=== PATIENT | female | born 1945 | race Caucasian/White ===

== ENCOUNTER 2019-04-02 07:11 | Day surgery (SDC) ==
[2019-03-25 11:41] LABS: URINE SOURCE VOIDED
[2019-03-25 11:53] LABS: BASO# 0.08 X1000 (0.0-0.2); BASO% 1.3 % (0.0-0.8); EOS# 0.13 X1000 (0.0-0.7); EOS% 2.2 % (0.0-10.0); HEMATOCRIT 41.2 % (37.0-47.0); HEMOGLOBIN 14.2 g/dL (12.0-16.0); LYMPH# 1.67 X1000 (1.2-3.4); LYMPH% 27.8 % (20.5-51.1); MCH 30.6 PG (27-31); MCHC 34.5 g/dL (33-37); MCV 88.8 FL (81-99); MONO# 0.93 X1000 (0.11-0.59); MONO% 15.5 % (1.7-9.3); NEUT# 3.19 X1000 (1.4-6.5); NEUT% 53.2 % (42.2-75.2); PLT 252 X1000 (130-400); RBC 4.64 XMIL (4.2-5.4); RDW 11.9 % (11.5-14.5)
[2019-03-25 11:58] LABS: INR 0.9; PROTIME 12.9 Seconds (11.0-16.0)
[2019-03-25 11:59] LABS: PTT 29.2 Seconds (22.3-41.8)
[2019-03-25 12:00] LABS: BILIRUBIN URINE NEGATIVE (NEGATIVE); BLOOD URINE NEGATIVE (NEGATIVE); COLOR STRAW; GLUCOSE URINE NEGATIVE (NEGATIVE); KETONE URINE NEGATIVE (NEGATIVE); LEUKOCYTES URINE NEGATIVE (NEGATIVE); NITRITE URINE NEGATIVE (NEGATIVE); PROTEIN URINE NEGATIVE (NEGATIVE); TURBIDITY URINE CLEAR (CLEAR); UROBILINOGEN URINE NORMAL (NORMAL)
[2019-03-25 12:01] LABS: UR EPITHELIAL CELLS <10 /HPF (<10); URINE BACTERIA NEGATIVE /HPF; URINE RBC <10 /HPF (<10); URINE WBC <10 /HPF (<10)
--- NOTE | 2019-03-25 12:11 | EKG Report ---
Test Performed on : 03/25/2019 10:25:56 AM Test Reason : PAT Blood Pressure : / mmHG Vent. Rate : 078 BPM Atrial Rate : 078 BPM P-R Int : 200 ms QRS Dur : 122 ms QT Int : 364 ms P-R-T Axes : -65 -23 154 degrees QTc Int : 414 ms Unusual P axis, possible ectopic atrial rhythm. with premature atrial complexes. Left bundle branch block Abnormal ECG When compared with ECG of 29-MAR-2016 12:52, Ectopic atrial rhythm. has replaced Sinus rhythm. ST elevation now present in Anterior leads T wave inversion more evident in Lateral leads QT has shortened Confirmed by Albino ROGERS, Desmond Ballesteros ([id number]) on 03/25/2019 3:01:47 PM
[2019-03-25 12:29] LABS: CALCIUM 9.7 mg/dL (8.8-10.2); CREATININE 1.1 mg/dL (0.5-0.9); POTASSIUM 3.3 mmol/L (3.5-5.1)
[2019-04-02] MEDS ORDERED: COLACE ONE (08:02)
[2019-04-02] MEDS ORDERED: LYRICA ONE (08:02)
[2019-04-02] MEDS ORDERED: PEPCID ONE (08:02)
[2019-04-02] MEDS ORDERED: KEFZOL 1 GM/D5W 2 GM/100 ML IVPB ONE (08:02)
[2019-04-02] MEDS ORDERED: LR 1,000 ML ONE (08:02)
[2019-04-02] MEDS ORDERED: CELEBREX ONE (08:02)
[2019-04-02] MEDS ORDERED: REGLAN ONE (08:02)
[2019-04-02] MEDS ORDERED: DURAMORPH ONE (09:47)
[2019-04-02] MEDS ORDERED: MARCAINE 0.25% PF ONE (09:47)
[2019-04-02] MEDS ORDERED: VANCOMYCIN ONE (09:47)
[2019-04-02] MEDS ORDERED: TORADOL ONE (09:47)
[2019-04-02] MEDS ORDERED: NEOSPORIN G.U. IRRIGANT ONE (09:48)
[2019-04-02] MEDS ORDERED: EXPAREL 1.3% ONE (09:48)
[2019-04-02] MEDS ORDERED: CYKLOKAPRON 1,000 MG/NS 1,000 MG/100 ML IVPB ONE ×2 (09:48→09:49)
[2019-04-02] MEDS ORDERED: SODIUM CHLORIDE 0.9% ONE (09:48)
[2019-04-02] MEDS ORDERED: FENTANYL ONE (10:20)
[2019-04-02] MEDS ORDERED: DIPRIVAN 1% ONE ×2 (10:20→10:22)
[2019-04-02] MEDS ORDERED: DECADRON ONE (10:57)
[2019-04-02] MEDS ORDERED: OFIRMEV 1000 MG/ISOTONIC SOLN 1,000 MG/100 ML BOTTLE ONE (10:57)
[2019-04-02] MEDS ORDERED: ZOFRAN ONE (10:57)
[2019-04-02 11:31] LABS: URINE SOURCE CATH
[2019-04-02 11:46] LABS: BILIRUBIN URINE NEGATIVE (NEGATIVE); BLOOD URINE NEGATIVE (NEGATIVE); COLOR STRAW; GLUCOSE URINE TRACE mg/dL (NEGATIVE); KETONE URINE NEGATIVE (NEGATIVE); LEUKOCYTES URINE NEGATIVE (NEGATIVE); NITRITE URINE NEGATIVE (NEGATIVE); PH URINE 7.5; PROTEIN URINE NEGATIVE (NEGATIVE); TURBIDITY URINE CLEAR (CLEAR); UROBILINOGEN URINE NORMAL (NORMAL)
[2019-04-02 12:03] LABS: UR EPITHELIAL CELLS <10 /HPF (<10); URINE BACTERIA NEGATIVE /HPF; URINE RBC <10 /HPF (<10); URINE WBC <10 /HPF (<10)
[2019-04-02] MEDS ORDERED: OXY IR ONE (13:17)
[2019-04-02] MEDS ORDERED: NS 1,000 ML ONE (13:17)
--- NOTE | 2019-04-02 13:25 | Diag Imaging Result Doc PS360 ---
EXAM: KNEE 1-2 VIEWS-LEFT HISTORY: post op total knee TECHNIQUE: Left knee, two views COMPARISON: None. FINDINGS: There has been orthopedic replacement of the knee. There are anterior skin vishal and a superior surgical drain. Good alignment to the femoral and tibial components. There is a fracture through the lateral femoral condyle. IMPRESSION: Lateral femoral condyle fracture. Electronically signed by Jas Rodriguez 04/02/2019 1:23 PM
--- NOTE | 2019-04-02 13:42 | OPERATIVE NOTE ---
PROCEDURE DATE: 04/02/2019 PREOPERATIVE DIAGNOSIS: Osteoarthritis, left knee. POSTOPERATIVE DIAGNOSIS: Osteoarthritis, left knee. PROCEDURE: Left total knee arthroplasty with DePuy Attune size 5 posterior stabilized femur, size 6 tibial tray, a 6 mm rotating platform tibial insert, and a 35 mm medialized anatomic patella. SURGEON: Eros Jeronimo MD. SCOUT: CHUCHO Fenton. SECOND MEASUREMENT COORDINATOR: Ludwig Eid RN. ANESTHESIA: General. IV FLUIDS: 1800 mL lactated Ringer's. ESTIMATED BLOOD LOSS: 50 mL. TOURNIQUET TIME: 85 minutes at 350 mmHg. COMPLICATIONS: None. INDICATION: The patient is a 73-year-old female with chronic history of pain and discomfort of the left knee. She has had continued pain and discomfort despite appropriate nonoperative treatment. X-rays revealed degenerative osteoarthritis. Recommendation to proceed with left total knee arthroplasty was offered. Risks and benefits of surgery were explained, including the risks of anesthesia, , bleeding, infection, failure to relieve pain, postoperative stiffness, nerve injury, blood clots, and other imponderables. All questions were answered and the patient and family wished to proceed with surgery. DETAILS OF OPERATION: The patient was taken to the operating room and placed supine on the operating table. Once adequate anesthesia was obtained, the patient's left lower extremity was subsequently prepped and draped in the usual sterile fashion. Esmarch was used to exsanguinate the left lower extremity. It was inflated to 350 mmHg. A standard anterior incision was made with a skin knife. Medial and lateral skin envelopes were developed. Standard medial parapatellar arthrotomy was then performed. Patella fat pad was excised. Retractors were then placed. Approximately 1 cm anterior to the PCL insertion, a starting reamer was passed. An intramedullary guide with a distal femoral cutting block was pinned in position. A distal femoral cut was then performed in a standard fashion. A sizing block was placed and measured to size 5. Corresponding pins were placed. A size 5 cutting block was placed in position. Anterior, posterior, and chamfer cuts were then made. Attention was then turned to the proximal tibia where further resection of the ACL and PCL was performed. Using the extramedullary guide, the proximal tibia cutting block was pinned in position. The proximal tibia was then resected. The proximal tibia was resected in a standard fashion. Medial and lateral menisci were excised. A curved osteotome was used to remove the posterior osteophytes off the distal femur. A spacer block was placed and had good soft tissue balance in both flexion and extension. The proximal tibia cutting block tray was then pinned in position. This was followed by a central reamer and a fin punch. A box cutting guide was then placed on the distal femur. A box cut was then performed. A trial femoral component was then placed and had good positioning. Two lug holes were drilled. A tibial insert was placed and had good soft tissue balancing. The patella was everted and resected in standard fashion. A 35 mm patella appeared to be correct size. Corresponding holes were drilled. The trial component was then placed. The patella had good patellofemoral tracking. Trial components were then removed. Copious irrigation was then performed with antibiotic pulsatile lavage while vancomycin was mixed with cement on the back table. Sequential cementing was then performed first with the tibial tray and excess cement was removed with a [place] followed by the femoral component and excess cement was removed with a [place] followed by a trial tibial insert in full extension. It was noted that the lateral femoral condyle had a fracture line extending from the corner of the box obliquely. It appeared be overall stable. Copious irrigation was then performed with antibiotic pulsatile lavage while vancomycin was mixed with cement on the back table. Sequential cementing was then performed, first with the tibial tray and excess cement removed with a [place]. This was followed by a pointed reduction clamp that was used on the femoral condyles to maintain the reduction of the lateral femoral condyle. Cement was then placed and the patella component was cemented in a standard fashion. A trial tibial insert was then placed in full extension, axial loading was maintained while cement cured. The patella component was then cemented in a standard fashion. Patella clamp was placed. While cement was curing, Exparel was placed deep in the soft tissue, as well as the subcutaneous tissue. After cement had cured the reduction clamp was removed. The knee was then carried through range of motion and the lateral femoral condyle appeared to be stable. There was no evidence of movement with flexion/extension or varus or valgus stressing. A 6 mm rotating platform tibial insert appeared to be correct size. The trial tibial insert was removed. Exparel was placed deep in the posterior capsule. The wound was copiously irrigated with antibiotic pulsatile lavage. A 6 mm rotating platform tibial insert was placed and carried through range of motion, with good range of motion, good soft tissue balancing, and good patellofemoral tracking. The lateral femoral condyle was stable. A 1/8 Hemovac drain was placed and was not sewn in. Copious irrigation was then performed once again with antibiotic pulsatile lavage. Suture of 1-0 Vicryl was used to repair the arthrotomy, followed by 2-0 Vicryl to repair the subcutaneous tissue, and skin vishal. Adaptic, sterile 4 x 4, ABD pad, and Webril cryo unit, and Chema wrap were applied to the left lower extremity. The patient tolerated the procedure well and was transferred to the recovery room in stable condition. cc: Eros Jeronimo MD
[2019-04-02] MEDS ORDERED: OXY IR PO PRN ×2 (14:45)
[2019-04-02] MEDS ORDERED: MORPHINE IV PRN ×3 (14:45)
[2019-04-02] MEDS ORDERED: ZOFRAN PO PRN (14:45)
[2019-04-02] MEDS: NS 1,000 ML IV SCH (16:31)
[2019-04-02] MEDS: KEFZOL 2 GM/D5W 2 GM/50 ML IVPB IV SCH (18:19)
[2019-04-02] MEDS ORDERED: CARDIZEM CD PO SCH (21:00)
[2019-04-02] MEDS: EFFEXOR PO SCH (21:15)
[2019-04-02] MEDS: PRILOSEC PO SCH (21:15)
[2019-04-02] MEDS: PERIDEX MT SCH (21:15)
[2019-04-02] MEDS: NEURONTIN PO SCH (21:15)
[2019-04-03] MEDS: KEFZOL 2 GM/D5W 2 GM/50 ML IVPB IV SCH (01:43)
[2019-04-03] MEDS ORDERED: XARELTO PO SCH (06:00)
[2019-04-03 06:36] LABS: HEMATOCRIT 31.5 % (37.0-47.0); HEMOGLOBIN 10.7 g/dL (12.0-16.0)
[2019-04-03 06:44] LABS: CALCIUM 8.7 mg/dL (8.8-10.2); CREATININE 1.1 mg/dL (0.5-0.9); POTASSIUM 3.9 mmol/L (3.5-5.1)
[2019-04-03] MEDS: NS 1,000 ML IV SCH (08:24)
[2019-04-03] MEDS ORDERED: KLOR-CON PO SCH (09:00)
[2019-04-03] MEDS ORDERED: HYZAAR 50/12.5 MG PO SCH (09:00)
[2019-04-03] MEDS ORDERED: XANAX PO SCH (09:00)
[2019-04-03] MEDS ORDERED: LASIX PO SCH (09:00)
[2019-04-03] MEDS: EFFEXOR PO SCH (09:28)
[2019-04-03] MEDS: PRILOSEC PO SCH (09:28)
[2019-04-03] MEDS: NEURONTIN PO SCH (09:28)
[2019-04-03] MEDS: PERIDEX MT SCH (09:28)
--- NOTE | 2019-04-03 10:50 | ORTHOPAEDICS PROGRESS NOTE ---
DATE: 04/03/2019 SUBJECTIVE: Patient is a 73-year-old female who is one day status post left total knee arthroplasty. Patient did sustain a lateral condyle fracture intraoperatively which was stable. She is currently resting comfortably. OBJECTIVE: On physical exam, patient's left lower extremity, her dressing is intact. Calf is soft. She has active dorsiflexion plantar flexion. LABORATORY DATE: Her labs are pending. IMPRESSION: Postoperative day #1 status post left total knee arthroplasty, with lateral condyle fracture. PLAN: At this point, will begin physical therapy with partial weightbearing left lower extremity. We will consider discharging later today if she is mobilizing with physical therapy. All questions were answered. We will arrange for outpatient physical therapy. cc: Eros Jeronimo MD
[2019-04-03 11:23] VITALS: BP 126/79
== END 2019-04-03 14:14 | disposition home or self-care (01) ==
LOC: PAT 07:11 → OPS 07:11 → SURHOLD 07:11 → 4N 14:16 → OPS 04-03 14:14
PROVIDERS: ATTEND Orthopaedic Surgery Adult Reconstructive Orthopaedic Surgery
CPT/HCPCS: 73560; 80048; 81001; 85014; 85018; 85025; 85610; 85730; 86850; 86900; 86901; 88305; 88311; 93005; 93010; 94760; 94799; 97110; 97116; 97162; 97530; A9270; C9290; J0131; J0690; J1100; J1885; J2274; J2275; J2405; J3010; J3370; J7030; J7120; Q9974; S0020